=== PATIENT | male | born 1995 | race Hispanic/Latino ===

== ENCOUNTER 2022-10-02 21:42 | Inpatient (IN) | payer OTHER ==
[~2022-10-02] VITALS: Ht 185.4 cm; Wt 63.1 kg
[2022-10-02 22:46] LABS: HEMATOCRIT 48.9 % (42.0-52.0); HEMOGLOBIN 16.4 g/dl (13.5-17.5); MEAN CORPUSCULAR HEMOGLOBIN 30.4 pg (27.0-33.0); MEAN CORPUSCULAR HGB CONC 33.5 g/dl (32.0-36.5); MEAN CORPUSCULAR VOLUME 90.6 fl (80.0-96.0); PLATELET COUNT, AUTOMATED 192 10^3/uL (150-450); WHITE BLOOD COUNT 6.4 10^3/uL (4.0-10.0)
[2022-10-02 23:05] LABS: AMPHETAMINES LEVEL URINE NEGATIVE (NEGATIVE); BARBITURATES URINE NEGATIVE (NEGATIVE); BENZODIAZEPINES URINE NEGATIVE (NEGATIVE); CANNABINOIDS URINE NEGATIVE (NEGATIVE); COCAINE METABOLITE URINE NEGATIVE (NEGATIVE); METHADONE URINE NEGATIVE (NEGATIVE); OPIATES URINE NEGATIVE (NEGATIVE); PHENCYCLIDINE URINE NEGATIVE (NEGATIVE)
[2022-10-02 23:06] LABS: ETHYL ALCOHOL (ETHANOL) 0.005 % (0.000-0.010)
[2022-10-02 23:07] LABS: SALICYLATE LEVEL < 3.0 MG/DL (<30)
[2022-10-02 23:08] LABS: ACETAMINOPHEN LEVEL < 2.0 UG/ML (10.0-20.0); ALBUMIN 4.7 G/DL (3.2-5.2); ALKALINE PHOSPHATASE 134 U/L (46-116); ALT/SGPT 20 U/L (7.0-40); AST/SGOT 21 U/L (<34); BILIRUBIN,DIRECT 0.3 MG/DL (<0.4); BILIRUBIN,TOTAL 0.7 MG/DL (0.3-1.2); BLOOD UREA NITROGEN 21 MG/DL (9-23); CALCIUM LEVEL 9.7 MG/DL (8.5-10.1); CARBON DIOXIDE LEVEL 30 MMOL/L (20-31); CHLORIDE LEVEL 101 MMOL/L (98-107); CREATININE FOR GFR 1.06 MG/DL (0.70-1.30); GLOMERULAR FILTRATION RATE > 60.0 (>60); GLUCOSE, FASTING 92 MG/DL (60-100); POTASSIUM SERUM 4.8 MMOL/L (3.5-5.1); SODIUM LEVEL 138 MMOL/L (136-145); TOTAL PROTEIN 7.3 G/DL (5.7-8.2)
[2022-10-02 23:11] LABS: THYROID STIMULATING HORMONE 4.203 uIU/ML (0.55-4.78)
[2022-10-03] MEDS ORDERED: MOM 30ML SUSPENSION UDC PO PRN (01:30)
[2022-10-03] MEDS ORDERED: MAALOX 30 ML SUSP *UDC PO PRN (01:30)
[2022-10-03] MEDS ORDERED: LORazepam 1 MG TAB PO PRN (01:30)
[2022-10-03] MEDS ORDERED: traZODone 50 MG TAB PO PRN (01:30)
[2022-10-03] MEDS ORDERED: ACETAMINOPHEN TAB 650MG DOSE (2X325MG) PO PRN (01:30)
[2022-10-03 03:22] VITALS: BP 119/71
[2022-10-03] MEDS: NICOTINE 21MG/24HR 1 EA TRANSDERMAL TD SCH (07:55)
[2022-10-03] MEDS ORDERED: HOME MED LIST COMPLETE! XX SCH (11:05)
[2022-10-03 16:17] VITALS: BP 131/69
[2022-10-03] MEDS: DIVALPROEX 250MG *ER* TAB PO SCH (22:34)
[2022-10-04 06:44] VITALS: BP 114/65
[2022-10-04] MEDS ORDERED: INFLUENZA QUADRIVALENT PF VACCINE 0.5ML SYRINGE IM.IMMUN ONE (09:00)
[2022-10-04] MEDS: NICOTINE 21MG/24HR 1 EA TRANSDERMAL TD SCH (09:00)
[2022-10-04 18:30] VITALS: BP 136/73
[2022-10-04] MEDS: DIVALPROEX 250MG *ER* TAB PO SCH (22:01)
[2022-10-05 05:53] VITALS: BP 122/84
[2022-10-05] MEDS: NICOTINE 21MG/24HR 1 EA TRANSDERMAL TD SCH (09:00)
[2022-10-05 18:38] VITALS: BP 135/79
[2022-10-05] MEDS: DIVALPROEX 500MG *ER* TAB PO SCH (20:35)
[2022-10-06 06:05] VITALS: BP 132/76
[2022-10-06] MEDS: NICOTINE 21MG/24HR 1 EA TRANSDERMAL TD SCH (09:00)
[2022-10-06 18:50] VITALS: BP 143/77
[2022-10-06] MEDS: DIVALPROEX 500MG *ER* TAB PO SCH (22:08)
[2022-10-07 06:29] VITALS: BP 128/77
[2022-10-07] MEDS: NICOTINE 21MG/24HR 1 EA TRANSDERMAL TD SCH (08:20)
[2022-10-07] MEDS ORDERED: TRAZ-252 PO (08:34)
[2022-10-07] MEDS ORDERED: DEPA500T2 PO (08:34)
== END 2022-10-07 11:02 | disposition home or self-care (01) | DRG 753 ==
LOC: M ED 21:42 → M ED INP 10-03 00:52 → M PSY 10-03 03:20
PROVIDERS: ADMIT Psychiatry & Neurology Psychiatry; ATTEND Psychiatry & Neurology Psychiatry
DX: F31.81 Bipolar II disorder (principal); F41.9 Anxiety disorder, unspecified; R45.851 Suicidal ideations; F17.200 Nicotine dependence, unspecified, uncomplicated